=== PATIENT | male | born 1975 | race Asian ===

== ENCOUNTER 2020-10-16 06:17 | Day surgery (SDC) | payer MEDICAID ==
[2020-10-09 11:37] LABS: BASOPHILS % (AUTO) 0.6 % (0-1); EOSINOPHILS # (AUTO) 0.2 X10'3 (0-0.9); EOSINOPHILS % (AUTO) 3.2 % (0-6); LYMPHOCYTES # (AUTO) 2.6 X10'3 (1.1-4.8); LYMPHOCYTES % (AUTO) 42.2 % (21-51); MEAN CORPUSCULAR HEMOGLOBIN 30.7 PG (27.0-31.0); MEAN CORPUSCULAR HGB CONC 34.3 g/dL (33.0-36.5); MEAN CORPUSCULAR VOLUME 89.6 FL (78-98); MEAN PLATELET VOLUME 8.1 FL (7.4-10.4); MONOCYTES # (AUTO) 0.4 X10'3 (0-0.9); MONOCYTES % (AUTO) 6.2 % (2-12); NEUTROPHILS % (AUTO) 47.8 % (42-75); PRE OP HEMATOCRIT 45.3 % (42.0-52.0); PRE OP HEMOGLOBIN 15.5 g/dL (14.0-17.9); PRE OP PLATELET COUNT 196 X10'3 (140-440); RED BLOOD COUNT 5.06 X10'6 (4.70-6.10); RED CELL DISTRIBUTION WIDTH 13.3 % (11.5-14.5)
[2020-10-09 11:39] LABS: CLARITY,URINE CLEAR (Clear); COLOR,URINE YELLOW (Yellow); GLUCOSE, URINE NEGATIVE (Neg); KETONES,URINE NEGATIVE (Neg); LEUKOCYTE ESTERASE ,URINE NEGATIVE (Neg); NITRITES, URINE NEGATIVE (Neg); OCCULT BLOOD,URINE NEGATIVE (Neg); PH,URINE 6.5 (4.8-8.0); PROTEIN,URINE NEGATIVE (Neg); UROBILINOGEN,URINE 0.2 E.U/dL (0.2-1.0)
[2020-10-09 11:43] LABS: UA COLLECTION TYPE CLN CATCH MIDSTREAM
[2020-10-09 12:01] LABS: ALBUMIN/GLOBULIN RATIO 0.9 (1.1-1.5); ALKALINE PHOSPHATASE 52 IU/L (46-116); BLOOD UREA NITROGEN 16 MG/DL (7-18); CALCIUM 9.2 MG/DL (8.5-10.1); CHLORIDE 100 MMOL/L (99-107); CREATININE 0.89 MG/DL (0.60-1.10); PRE OP ALT 41 U/L (30-65); PRE OP ANION GAP 7 (8-16); PRE OP AST 25 U/L (10-37); PRE OP BILIRUB, TOTAL 0.6 MG/DL (0.0-1.0); PRE OP GLUCOSE 82 MG/DL (70-104); PRE OP POTASSIUM 3.8 MMOL/L (3.4-5.1); PRE OP SODIUM 139 MMOL/L (135-145); TOTAL CARBON DIOXIDE 31.7 MMOL/L (24-32); TOTAL PROTEIN 8.4 G/DL (6.4-8.2); eGFR > 90 ML/MIN
[~2020-10-16] VITALS: Ht 160 cm; Wt 89.4 kg
[2020-10-16] VITALS (7 sets, daily range): BP systolic 117–134; BP diastolic 80–87
[~2020-10-16 06:17] MED LIST: NO HOME MEDS; ceFAZolin 2gm in dextrose, iso 50 ML IV ONE; famotidine 20mg tablet PO ONE; ringers solution, lacted 1,000 ML IV SCH
[2020-10-16] MEDS ORDERED: bacitracin 15gm ointment TP ONE ×2 (06:48→09:10)
[2020-10-16] MEDS ORDERED: LIDOcaine 1% (10mg/ml) 2ml vial ONE (07:08)
[2020-10-16] MEDS ORDERED: BUPIVAcaine/PF 2.5 mg/ml (0.25%) 30ml vial ONE (09:10)
[2020-10-16] MEDS ORDERED: midazolam 1 mg/ML 2ml injection ONE (09:10)
[2020-10-16] MEDS ORDERED: fentaNYL/PF 50MCG/1 ML 2ML syringe ONE (09:10)
[2020-10-16] MEDS ORDERED: propofol inj 20 ML IV ONE (09:12)
[2020-10-16] MEDS ORDERED: morphine 2 MG/ML inj. syringe IV PRN (09:20)
[2020-10-16] MEDS ORDERED: ringers solution, lacted 1,000 ML IV SCH (09:20)
[2020-10-16] MEDS ORDERED: meperidine/PF 25mg/ml syringe IV PRN ×3 (09:20)
[2020-10-16] MEDS ORDERED: ondansetron/PF 4mg/2ml inj IV PRN (09:20)
[2020-10-16] MEDS ORDERED: proCHLORperazine 10 MG/2 ml inj IV PRN (09:20)
[2020-10-16] MEDS ORDERED: morphine 4 MG/ML inj SYRINge IV PRN (09:20)
[2020-10-16] MEDS ORDERED: LIDOcaine 1% 30ml preserv. free vial ONE (09:23)
--- NOTE | 2020-10-16 10:15 | NUR ---
Received from OR via e[facility], accompanied by Anesthesiologist and report given by Anesthesiologist. pateint is awake and alert, denzel wrap and dressing on right foot, patient is able to move toes of right foot, dressing CDI, right wrist 20G, side rails up, will monitor. Addendum: 10/16/20 at 1032 by Hermelinda Cox RN Amended: Links added.
--- NOTE | 2020-10-16 10:55 | NUR ---
Patient's V.S. stable, denies pain at this time, PIV D/C'd from right wrist 20G catheter intact, RADHA wrap and dressing CDI on right foot, discharge instruction given, patient verbalized understanding, antoni harringtonestefanyrobert and other personal belongings transferred with patient in wheelchair to prive vehicle with no incident, his will drive patient home, patient states he has pain medicine at home when he needs it. Addendum: 10/16/20 at 1120 by Hermelinda Cox RN Amended: Links added.
== END 2020-10-16 10:55 | disposition home or self-care (01) ==
LOC: PAS 06:17
PROVIDERS: ATTEND Podiatrist Foot & Ankle Surgery
DX: M79.89 Other specified soft tissue disorders (principal); D36.13 Benign neoplasm of peripheral nerves and autonomic nervous system of lower limb, including hip; Z20.822 Contact with and (suspected) exposure to COVID-19; E66.9 Obesity, unspecified; Z68.34 Body mass index [BMI] 34.0-34.9, adult; Z79.899 Other long term (current) drug therapy; Z98.890 Other specified postprocedural states
CPT/HCPCS: 28041; 36415; 80053; 81003; 82948; 85025; 87635; 93005; A6223; J2001; J2250; J2704; J3010; J3490; A4215; A4618; A6449; A7000; J7120